=== PATIENT | male | born 1985 | race Caucasian/White ===

== ENCOUNTER 2020-12-20 13:24 | Emergency (ER) | payer SELFPAY ==
[2020-12-20 13:37] VITALS: BP 121/66; PULSE 91; RESP 16; TEMP 37.6; O2SAT 97
--- NOTE | 2020-12-20 14:09 | ED.URI ---
HPI - URI/Sore Throat General Chief Complaint: Upper Respiratory Infection Stated Complaint: Cough, loss of weight Time Seen by Provider: 12/20/20 14:09 Source: patient and RN notes reviewed Mode of arrival: ambulatory Limitations: no limitations History of Present Illness HPI Narrative: 35-year-old male presents to the [facility] with complaints of cough for a couple of months. Patient was concern for weight loss as well. Patient is a current smoker. Denies chest pain or shortness of breath. No abdominal pain. Denies fevers. Related Data Home Medications Medication Instructions Recorded Confirmed No Home Medications 12/20/20 12/20/20 Allergies Allergy/AdvReac Type Severity Reaction Status Date / Time No Known Allergies Allergy Verified 12/20/20 13:56 Review of Systems Review of Systems: All systems reviewed & are unremarkable except as noted in HPI and below Constitutional: Constitutional: Reports no additional constitutional complaints, Denies chills and Denies fever(s) Eyes: Eyes: Reports no additional eye complaints ENT: Reports system reviewed and no additional complaints, except as documented Cardiovascular: Cardiovascular: Reports no additional cardiovascular complaints and Denies chest pain Respiratory: Respiratory: Reports no additional respiratory complaints, Reports cough (4 months) and Denies dyspnea Gastrointestinal: Gastrointestinal: Reports as per HPI (Unexplained weight loss) Musculoskeletal: Musculoskeletal: Reports no additional musculoskeletal complaints Integumentary/Breasts: Skin/Breast: Reports system reviewed and no additional complaints, except as docu Neurologic: Reports system reviewed and no additional complaints, except as documented Psychiatric: Psychiatric: Reports no additional psychiatric complaints Allergic/Immunologic: Allergic/Immunologic: Reports no additional allergic/immunologic complaints PMFSH Comments Patient denies any medical or surgical history. At the time of my signature, I reviewed and agree with the nursing past medical, surgical, social, and family history. There is no relevant family history pertinent to the patient complaint. Exam Const: General: no acute distress Orientation/consciousness: patient oriented x3 Other: Older than stated age, thin HENMT: Head: normal to inspection Eyes: Pupils: Equal, round and reactive pupils present Neck: Neck: normal visual inspection Chest: Chest palpation & inspection: normal inspection of the chest Resp: Effort & Inspection: normal respiratory effort Auscultation: wheezes scattered wheezes and diminished lung sounds bilateral Cardio: Rate: regular rate Rhythm: regular rhythm GI: GI Palp: Yes Soft to palpation and No Tenderness to palpation present (GI) Back/Spine/Pelvis: Back: no CVA tenderness Skin: General skin exam: normal color Rashes: no rashes Neuro: General: patient oriented x3, moves all extremities, no meningeal signs and no focal motor deficits Speech: normal speech Gait exam (Neuro): Normal gait present Extrem: General: normal to inspection and no pedal edema Psych: Appearance: grossly normal and well kempt Mental Status: mental status grossly normal Affect: normal affect Attitude: cooperative Thought content: Yes Normal thought content present Course Course Emergency Course: Informed by x-ray tech patient got up when she went to get him for x-ray something, states I do not have money for this and walked out of clinic. Vital Signs Vital signs: Vital Signs Temperature 99.6 F 12/20/20 13:37 Pulse Rate 91 12/20/20 13:37 Respiratory Rate 16 12/20/20 13:37 Blood Pressure 121/66 12/20/20 13:37 Pulse Oximetry 97 12/20/20 13:37 Temperature 99.6 F 12/20/20 13:37 Pulse Rate 91 12/20/20 13:37 Respiratory Rate 16 12/20/20 13:37 Blood Pressure 121/66 12/20/20 13:37 Pulse Oximetry 97 12/20/20 13:37 Reviewed MDM - URI/Sore Throat Differe
== END 2020-12-20 14:25 | disposition left against medical advice (07) ==
PROVIDERS: Emergency Provider Nurse Practitioner
DX: R05 Cough (principal)
CPT/HCPCS: 99211; G0463